=== PATIENT | female | born 1955 | race Two or more races ===

== ENCOUNTER 2021-08-18 17:22 | Emergency (ER) | payer MEDICAID ==
[~2021-08-18] VITALS: Ht 162.6 cm; Wt 130.0 kg
[~2021-08-18 17:22] MED LIST: AMLO-256 PO; BUPR150T8 PO; CYCL-1 PO; GABA-532 PO; LOSA50TA3 PO; MELO-100 PO; OMEP20CA15 PO
[2021-08-18] MEDS ORDERED: morphine 4 MG/ML inj SYRINge IM ONE (21:25)
[2021-08-18] MEDS ORDERED: ibuprofen tablet 400 MG TABLET PO ONE (21:25)
--- NOTE | 2021-08-18 21:34 | NUR ---
MEDICATION PULLED AND GIVEN TO PRIMARY RN FOR ADMINISTRATION.
[2021-08-18] MEDS ORDERED: TETanus/Pertussis (Acell)/Diphther VAC/PF (Tdap-Adult) 0.5ml syringe IMVAC ONE (21:35)
[2021-08-18] MEDS ORDERED: HYDROcodone/acetaminophen 7.5MG/325MG per 15ml UD CUP PO ONE (22:10)
[2021-08-18] MEDS ORDERED: LIDOcaine 1% W/epiNEPHrine 1:100,000 20ml vial SQ ONE (22:15)
[2021-08-18] MEDS ORDERED: HYDR-3965 PO (22:56)
[2021-08-18] MEDS ORDERED: DOCU-148 PO (22:56)
[2021-08-18] MEDS ORDERED: CEPH500C2 PO (23:24)
[2021-08-18 23:53] VITALS: BP 154/78
== END 2021-08-19 00:04 | disposition home or self-care (01) ==
LOC: ER 17:22
DX: S42.214A Unspecified nondisplaced fracture of surgical neck of right humerus, initial encounter for closed fracture (principal); M25.511 Pain in right shoulder; M79.604 Pain in right leg; S71.111A Laceration without foreign body, right thigh, initial encounter; I10 Essential (primary) hypertension; Z20.3 Contact with and (suspected) exposure to rabies; Z79.2 Long term (current) use of antibiotics; Z79.899 Other long term (current) drug therapy; W19.XXXA Unspecified fall, initial encounter; Y93.89 Activity, other specified; Y92.89 Other specified places as the place of occurrence of the external cause; Y99.8 Other external cause status
CPT/HCPCS: 12001; 73030; 73552; 73660; 90471; 90715; 96372; 99284; J2270

== ENCOUNTER 2022-03-08 16:54 | Emergency (ER) | payer MEDICARE, MEDICAID, OTHER ==
[~2022-03-08] VITALS: Ht 157.5 cm; Wt 127.7 kg
[~2022-03-08 16:54] MED LIST changes: +DOCU-148 PO
[2022-03-08 17:00] VITALS: BP 173/90
== END 2022-03-09 07:55 | disposition home or self-care (01) ==
LOC: ER 16:54
DX: S61.212A Laceration without foreign body of right middle finger without damage to nail, initial encounter (principal); R20.0 Anesthesia of skin; I10 Essential (primary) hypertension; Z79.899 Other long term (current) drug therapy; W26.8XXA Contact with other sharp object(s), not elsewhere classified, initial encounter; Y93.89 Activity, other specified; Y92.89 Other specified places as the place of occurrence of the external cause; Y99.8 Other external cause status
CPT/HCPCS: 12001; 99282; A6449

== ENCOUNTER 2023-04-24 15:44 | Emergency (ER) | payer MEDICARE, MEDICAID ==
[~2023-04-24] VITALS: Ht 157.5 cm; Wt 127.3 kg
[~2023-04-24 15:44] MED LIST changes: -BUPR150T8 PO; +CHOL20003 PO; -CYCL-1 PO; -DOCU-148 PO; -GABA-532 PO; +LOSA100T58 PO; -LOSA50TA3 PO; -MELO-100 PO; +METF-438 PO; +NAPR-996 PO; -OMEP20CA15 PO; +THIA100T70 PO
[2023-04-24 16:04] VITALS: BP 163/82; PULSE 75; RESP 16; TEMP 97.8; O2SAT 97
[2023-04-24] MEDS ORDERED: ciprofloxacin 0.3% 2.5ml ophthalmic solution LEFTEYE ONE (17:15)
[2023-04-24] MEDS ORDERED: CIPR2.5D21 LEFTEYE (17:35)
== END 2023-04-24 17:54 | disposition home or self-care (01) ==
LOC: ER 15:45
DX: H10.9 Unspecified conjunctivitis (principal); I10 Essential (primary) hypertension; Z79.899 Other long term (current) drug therapy
CPT/HCPCS: 99283

== ENCOUNTER 2023-07-26 20:00 | Emergency (ER) | payer MEDICARE, MEDICAID ==
[~2023-07-26] VITALS: Ht 157.5 cm; Wt 131.8 kg
[2023-07-26 22:23] VITALS: BP 134/84; PULSE 66; TEMP 98.1; O2SAT 94
[2023-07-26 22:26] VITALS: RESP 18
--- NOTE | 2023-07-26 22:48 | NUR ---
I agree with assessment done by [employer] TEAM MEMBER.
== END 2023-07-26 22:29 | disposition home or self-care (01) ==
LOC: ER 20:01
DX: H57.11 Ocular pain, right eye (principal); Z53.21 Procedure and treatment not carried out due to patient leaving prior to being seen by health care provider
CPT/HCPCS: 99281

== ENCOUNTER 2024-10-25 16:46 | Emergency (ER) | payer MEDICARE, MEDICAID ==
[~2024-10-25] VITALS: Ht 154.9 cm; Wt 126.7 kg
[2024-10-25 17:05] VITALS: TEMP 97.5
[2024-10-25 17:55] LABS: BASOPHILS # (AUTO) 0.1 X10'3 (0-0.2); BASOPHILS % (AUTO) 1.2 % (0-1); EOSINOPHILS # (AUTO) 0.3 X10'3 (0-0.9); EOSINOPHILS % (AUTO) 3.5 % (0-6); HEMATOCRIT 44.6 % (35.0-45.0); HEMOGLOBIN 15.4 g/dl (12.0-16.0); LYMPHOCYTES # (AUTO) 3.2 X10'3 (1.1-4.8); MEAN CORPUSCULAR HEMOGLOBIN 31.2 PG (27.0-31.0); MEAN CORPUSCULAR HGB CONC 34.5 g/dL (33.0-36.5); MEAN CORPUSCULAR VOLUME 90.3 FL (78-98); MONOCYTES # (AUTO) 0.5 X10'3 (0-0.9); MONOCYTES % (AUTO) 5.8 % (2-12); NEUTROPHILS # (AUTO) 3.9 X10'3 (1.8-7.7); NEUTROPHILS % (AUTO) 49.5 % (42-75); PLATELET COUNT 219 X10'3 (140-440); RED BLOOD COUNT 4.94 X10'6 (4.20-5.60); RED CELL DISTRIBUTION WIDTH 14.1 % (11.5-14.5); WHITE BLOOD COUNT 7.9 X10'3 (4.5-11.0)
[2024-10-25 18:06] LABS: APTT 28 SECONDS (22-32); PROTHROMBIN TIME 10.4 SECONDS (9.0-12.0)
[2024-10-25 18:09] LABS: ALANINE AMINOTRANSFERASE 42 U/L (12-78); ALBUMIN 3.3 G/DL (3.4-5.0); ALBUMIN/GLOBULIN RATIO 0.8 (1.1-1.5); ALKALINE PHOSPHATASE 106 IU/L (46-116); ANION GAP 7 (8-16); ASPARTATE AMINO TRANSFERASE 30 U/L (10-37); BILIRUBIN,TOTAL 0.9 MG/DL (0.1-1.0); BLOOD UREA NITROGEN 18 MG/DL (7-18); BUN/CREATININE RATIO 21.4 (10.0-20.0); CHLORIDE 106 MMOL/L (99-107); CREATININE 0.84 MG/DL (0.40-0.90); GLUCOSE 124 MG/DL (70-104); POTASSIUM 3.2 MMOL/L (3.5-5.1); SODIUM 141 MMOL/L (135-145); TOTAL CARBON DIOXIDE 28.4 MMOL/L (24-32); TOTAL PROTEIN 7.3 G/DL (6.4-8.2); eCRCL 49 ML/MIN; eGFR 68 ML/MIN
[2024-10-25 18:20] LABS: FREE T4 (FREE THYROXINE) 0.91 NG/DL (0.73-1.40); PRO BRAIN NATRIURETIC PEPTIDE 189 PG/ML (0-125); THYROID STIMULATING HORMONE 4.71 ulU/ml (0.34-4.50)
[2024-10-25] MEDS: meclizine 12.5mg tablet PO ONE (20:02)
[2024-10-25] MEDS ORDERED: MECL-302 PO (20:50)
[2024-10-25 20:51] VITALS: BP 188/98; PULSE 59; RESP 16; O2SAT 96
== END 2024-10-25 20:53 | disposition home or self-care (01) ==
LOC: ER 16:47
DX: R42 Dizziness and giddiness (principal); I10 Essential (primary) hypertension
CPT/HCPCS: 36415; 70450; 71045; 80053; 83880; 84439; 84443; 84484; 85025; 85610; 85730; 93005; 99285; J8597